=== PATIENT | female | born 1990 | race Caucasian/White ===

== ENCOUNTER 2019-09-20 15:12 | Emergency (ER) | payer BC, MEDICAID ==
[2019-09-20 15:16] VITALS: BP 128/84; PULSE 74; RESP 18; TEMP 97.9
[2019-09-20] MEDS ORDERED: LIDOCAINE 1% INJ 10MG/ML (20 ML MDV) SQ ONE (15:40)
[2019-09-20] MEDS ORDERED: ACETAMINOPHEN TAB 500 MG TAB PO STA (15:49)
[2019-09-20] MEDS ORDERED: HYDROcodone/APAP 5-325MG 1 EACH TAB PO STA (16:13)
--- NOTE | 2019-09-20 16:13 | XR ---
EXAMINATION TYPE: XR forearm RT DATE OF EXAM: 09/20/2019 CLINICAL HISTORY: Laceration injury with pain. TECHNIQUE: Two views of the right forearm are obtained. COMPARISON: None. FINDINGS: There is no acute fracture or dislocation seen in the right radius or ulna. The right elb ow and wrist joints appear within normal limits. Lucency consistent with laceration proximal forearm level is present greatest along the ulnar and dorsal aspect. There are 2 larger radiodense soft tissu e foreign bodies with additional punctate foreign body seen best on lateral view. Largest fragment me asures roughly 1.7 cm on long axis. IMPRESSION: As above
[2019-09-20] MEDS ORDERED: MORPHINE SULFATE 4 MG/ML SYRINGE IVP STA ×2 (16:23→16:26)
[2019-09-20] MEDS ORDERED: MORPHINE SULFATE 4 MG/ML SYRINGE IM STA (16:40)
--- NOTE | 2019-09-20 16:57 | XR ---
EXAMINATION TYPE: XR forearm RT DATE OF EXAM: 09/20/2019 CLINICAL HISTORY: Postop foreign body removal. TECHNIQUE: Two views of the right forearm are obtained. COMPARISON: Prior right forearm x-ray earlier today.. FINDINGS: There is no acute fracture or dislocation seen in the right radius or ulna. The right elb ow and wrist joints remain within normal limits. Persistent lucency consistent with laceration injury along the dorsal and slight ulnar aspect of the proximal forearm with interval improvement in soft t issue foreign body but persistent 8mm soft tissue foreign body and a few additional tiny soft tissue foreign body fragments. IMPRESSION: As above.
[2019-09-20] MEDS ORDERED: CEPHALEXIN 500MG STARTER PACK 4 CAP BTL PO STA (17:23)
--- NOTE | 2019-09-20 17:26 | ED ---
Wound/Laceration HPI - General Chief Complaint: Wound/Laceration Stated Complaint: rt arm lac Time Seen by Provider: 09/20/19 15:21 Source: patient Mode of arrival: ambulatory Limitations: no limitations - History of Present Illness Initial Comments: Patient is a 28-year-old female presenting to the emergency department with chief complaint of laceration. Patient states she tripped and fell on a ceramic teapot. Reports the laceration is located on the medial aspect of the right forearm. Patient states she went to the urgent care over concern for tendon damage so they transported to the emergency department. Patient reports pain is somewhat manageable. States she was already anesthetized locally in the urgent care. States tetanus is not up-to-date. Reports full range of motion in her hand and fingers. Denies any numbness or tingling. - Related Data Previous Rx's Medication Instructions Recorded Azithromycin [Zithromax Z-pack] 0 mg PO DIRECTED #6 tab 11/23/13 Benzonatate [Tessalon Perles] 100 mg PO TID PRN #30 capsule 11/23/13 predniSONE [Deltasone] 20 mg PO BID #8 tab 11/23/13 Cephalexin [Keflex] 500 mg PO Q8HR 7 Days #21 cap 09/20/19 Allergies Allergy/AdvReac Type Severity Reaction Status Date / Time No Known Allergies Allergy Verified 09/20/19 15:17 Review of Systems ROS Statement: Those systems with pertinent positive or pertinent negative responses have been documented in the HPI. ROS Other: All systems not noted in ROS Statement are negative. Past Medical History Past Medical History: No Reported History History of Any Multi-Drug Resistant Organisms: None Reported Past Surgical History: No Surgical Hx Reported Past Psychological History: No Psychological Hx Reported Smoking Status: Current every day smoker Past Alcohol Use History: Occasional Past Drug Use History: None Reported General Exam Limitations: no limitations General appearance: alert, in no apparent distress Head exam: Present: atraumatic, normocephalic, normal inspection Course Vital Signs 09/20/19 15:14 Temperature 97.9 F Pulse Rate 74 Respiratory 18 Rate Blood Pressure 128/84 O2 Sat by Pulse 99 Oximetry Procedures - Forgein Body Removal Soft Tissue Consent Obtained: verbal consent Site: upper extremity (Right forearm) Anesthetic Used: lidocaine 1% Amount (mLs): 10 Foreign Body Suspected: Other (Ceramic material) Foreign Body Removed: yes Foreign Body Removal Technique: Forceps Complications: pain, bleeding Patient Tolerated Procedure: well, no complications - Laceration Laceration #1 Consent Obtained: verbal consent Indication: laceration Site: upper extremity (Right forearm) Size (cm): 5 Description: flap, irregular, contaminated, foreign body Depth: simple, single layer Sedation/Analgesia: none Anesthetic Used: lidocaine 1% Anesthesia Technique: local infiltration Amount (mls): 5 Pre-repair: wound explored, irrigated extensively, deep structures intact, foreign body removed, wound margins revised Type of Sutures: nylon Size of Sutures: 4-0 Number of Sutures: 5 Technique: simple, interrupted Patient Tolerated Procedure: well, no complications Medical Decision Making - Medical Decision Making Patient is a 28-year-old female presenting to emergency Department with a chief complaint of a laceration. Patient fell on a ceramic teacup. Exam there is a palpable foreign body at laceration site which is contaminated with small ceramic fragments. There is also a 5 cm irregular lacera laceration. The urgent care was concern for tendon involvement, however this only appears to be fragments from the ceramic teacup but not actual tendons. Initial x-ray reveals a foreign body that is lodged under the skin and not directly visible. Laceration site needed to be extended with a #11 night in order to remove the additional ceramic fragments. A secondary repeat x-ray was obtained with some improvement, however there appears to be secondary please in there as well along with smaller fragments. Thorough irrigation was performed with 2 L of sterile water. Laceration site was repaired with 5 sutures. Patient started on antibiotics. Will be discharged with a seven-day course of antibiotics. Advised to return to emergency department in 7 days for suture removal. Return parameters were thoroughly discussed with the patient was understanding and agreeable. Case discussed with physician. Disposition Clinical Impression: Laceration, Soft tissues foreign body Disposition: HOME SELF-CARE Condition: Stable Instructions (If sedation given, give patient instructions): Care For Your Stitches (DC), Laceration (DC), Soft Tissue Foreign Body (ED) Additional Instructions: Return to emergency department at 7-10 days for suture removal. Take prescribed medication as directed. Prescriptions: Cephalexin [Keflex] 500 mg PO Q8HR 7 Days #21 cap Is patient prescribed a controlled substance at d/c from ED?: No Referrals: None,Stated [Primary Care Provider] - 1-2 days Time of Disposition: 17:26
== END 2019-09-20 17:38 | disposition home or self-care (01) ==
LOC: EC 15:12
DX: S51.821A Laceration with foreign body of right forearm, initial encounter (principal); F17.200 Nicotine dependence, unspecified, uncomplicated; W01.0XXA Fall on same level from slipping, tripping and stumbling without subsequent striking against object, initial encounter
CPT/HCPCS: 73090; 99283; 12032; 96372; J2270; J2001